=== PATIENT | male | born 1975 | race Caucasian/White ===

== ENCOUNTER 2023-07-18 08:30 | Outpatient (RCR) | payer MEDICARE, SELFPAY ==
[2023-07-18] VITALS (12 sets, daily range): BP systolic 119–135; BP diastolic 75–87
[2023-07-18] MEDS: NSS 500 IV (09:25)
[2023-07-18] MEDS: SOLU-MEDROL PF 51.6000000000000014 MG IV (09:25)
[2023-07-18] MEDS: BENADRYL 51 MG IV (09:47)
[2023-07-18] MEDS: OCREVUS 520 MG IV (10:13)
[2023-07-18] MEDS: ATIVAN 0.5 MG PO (12:16)
--- NOTE | 2023-07-18 13:29 | PTCARENOTE ---
1100- Pt requesting PRN dose of Ativan. States 'feeling anxious'.Called [facility], spoke with nurse Wright. Patients last dose was yesterday.
1130- Spoke with Wendi Carter NP, she is off campus. Updated her about patient history. Obtained verbal order for one time dose of Ativan 0.5mg PO. Administered as directed.
1300- Pt states 'feeling better, less anxious'.
== END 2023-07-19 09:37 | disposition home or self-care (01) ==
LOC: OID 08:30
PROVIDERS: ATTENDING PHYSICIAN Psychiatry & Neurology Neurology; FAMILY PHYSICIAN Student in an Organized Health Care Education/Training Program
DX: G35 Multiple sclerosis (principal)
CPT/HCPCS: 96361; 96367; 96413; 96415; J2350